=== PATIENT | female | born 1950 | race Caucasian/White ===

== ENCOUNTER 2019-06-08 09:30 | Outpatient (RCR) | payer MEDICARE, SELFPAY ==
[2019-03-23 14:16] VITALS: BMI 41.8
[2019-06-08 08:39] VITALS: BMI 41.8
== END 2019-06-21 23:59 | disposition home or self-care (01) ==
LOC: ANHDMC 09:30
PROVIDERS: PCP Internal Medicine; Visit Provider Internal Medicine
DX: E11.22 Type 2 diabetes mellitus with diabetic chronic kidney disease (principal); N18.3 Chronic kidney disease, stage 3 (moderate); Z71.3 Dietary counseling and surveillance
CPT/HCPCS: 97803

== ENCOUNTER 2019-07-10 22:35 | Emergency (ER) | payer MEDICARE, SELFPAY ==
[2019-07-10 22:39] VITALS: BP 173/71; PULSE 109; RESP 20; TEMP 37.2; O2SAT 100
--- NOTE | 2019-07-10 22:39 | ED.EAR ---
HPI - Ear Problem General Chief complaint: Ear Stated complaint: R EAR PAIN Time Seen by Provider: 07/10/19 22:38 Source: patient and RN notes reviewed Mode of arrival: ambulatory Limitations: no limitations History of Present Illness HPI Narrative: A 68 y/o female presents to the ED with constant rt ear pain beginning this morning. She states that she has seasonal allergies with cause recurrent ear infections and believes that she has one now. She reports associated decreased ability to hear out of her rt ear. She denies any fevers, chills, sore throat, cough, nasal congestion, or any other medical complaints at this time. Complaint: ear pain Location: right ear Duration: constant Context: Reports other (recurrent ear infections) Associated symptoms ear: decreased hearing Related Data Allergies Allergy/AdvReac Type Severity Reaction Status Date / Time atorvastatin Allergy Mild swelling Verified 01/24/19 05:01 codeine Allergy Unknown Unknown Verified 07/10/19 22:59 Luteinizing Hormone Analogues Allergy Unknown Verified 07/10/19 22:59 Opioids - Morphine Analogues AdvReac Vomiting Verified 07/10/19 22:59 Review of Systems Review of Systems: All systems reviewed & are unremarkable except as noted in HPI and below Constitutional: Constitutional: Denies chills and Denies fever(s) ENT: Denies nasal congestion, Denies sore throat and Reports other (rt ear pain and decreased ability to hear out of rt ear) PMFSH Past Medical History Medical History Arthritis DM II (diabetes mellitus, type II), controlled H/O: HTN (hypertension) Surgical History Surgical History Surgical history unknown Family History Family History Other Family history of Alzheimer's disease Family history of arthritis Social History Social History Smoking status: Never smoker Alcohol intake: current Spiritual care concerns: No Exam Const: General: healthy appearing and no acute distress Nutritional Appearance: well nourished HENMT: Head: other (lymphadenopathy) Ears: unable to visualize TM (Erythema, induration, and swelling of the external rt ear canal) on the right Mouth: Yes lip normal and Yes moist mucous membranes Eyes: Conjunctivae: conjunctivae normal Pupils: Equal, round and reactive pupils present Resp: Effort & Inspection: normal respiratory effort Auscultation: clear to auscultation bilaterally Cardio: Rate: regular rate Rhythm: regular rhythm Heart sounds: no murmurs GI: GI Palp: No abdominal tenderness and Yes Soft to palpation Auscultation: normal bowel sounds Back/Spine/Pelvis: Other: Full ROM. Skin: General skin exam: normal color, dry skin and other (warm) Neuro: General: patient oriented x3 (alert) Speech: normal speech Extrem: General: full ROM Psych: Mental Status: mental status grossly normal Affect: normal affect Course Vital Signs Vital signs: Vital Signs Temperature 37.2 C 07/10/19 22:39 Pulse Rate 109 H 07/10/19 22:39 Respiratory Rate 07/10/19 22:39 Blood Pressure 173/71 H 07/10/19 22:39 Pulse Oximetry 100 07/10/19 22:39 Temperature 37.2 C 07/10/19 22:39 Pulse Rate 109 H 07/10/19 22:39 Respiratory Rate 07/10/19 22:39 Blood Pressure 173/71 H 07/10/19 22:39 Pulse Oximetry 100 07/10/19 22:39 Medical Decision Making MDM Narrative Medical decision making narrative: She has severe otitis externa and due to swelling I was not able to visualize TM. Will treat with topical and oral antibiotics. Medical Records Medical records reviewed: Yes I reviewed the patient's medical records. Vital Signs Vital Signs: Vital Signs Temperature 37.2 C 07/10/19 22:39 Pulse Rate 109 H 07/10/19 22:39 Respiratory Rate 07/10/19 22:39 Blood Pressure 173/71 H 07/10/19 22:39 Pulse
[2019-07-10] MEDS: CIPROFLOXACIN HC OTIC 10 ML 3 DROP RIGHT EAR (22:57)
[2019-07-10] MEDS: AMOXICILLIN/CLAVULANATE K 875-125 MG TAB 1 TABLET PO (22:57)
== END 2019-07-10 23:15 | disposition home or self-care (01) ==
PROVIDERS: Emergency Provider Emergency Medicine; PCP Internal Medicine
DX: H60.311 Diffuse otitis externa, right ear (principal); E11.9 Type 2 diabetes mellitus without complications; I10 Essential (primary) hypertension; M19.90 Unspecified osteoarthritis, unspecified site
CPT/HCPCS: 99283; A9270

== ENCOUNTER 2019-10-08 08:00 | Outpatient (RCR) | payer MEDICARE, SELFPAY ==
[2019-07-29 08:33] VITALS: BP_SYST 90
--- NOTE | 2019-07-29 11:42 | PTOPEVAL ---
Thank you for referring Spring Ladd to [facility]. Please review, sign, date and return this plan of care DAYANNA. Pt referred to therapy to address impairments related to right shoulder pain. She demonstrates decreased shoulder range and strength, decreased UE function and increased pain. She requires additional skilled therapy 2x/wk x 6 wk to address therapy goals. I agree with and certify that the following plan of care is medically necessary. Referring Physician Date Attending Provider: Andrea Klein, Referring Provider: *PT Outpatient Evaluation Start: 07/29/19 08:35 Freq: Status: Active Protocol: Document 07/29/19 08:33 [facility] (Rec: 07/29/19 09:00 [facility] [id number]) Therapy Assessment Status Assessment Status Evaluation Outpatient Past Medical History Past Medical History Source of Past Medical History Patient,Recalled from Previous Visit, Confirmed with Patient /Family Neurological History Hx Neurological Disorders No Significant History Cardiovascular History Hx Hypertension Yes Musculoskeletal History Hx Arthritis Yes: right knee, injections Endocrine History Hx Diabetes Yes: prediabetic Other History Hx Cancer Yes: malignant neoplasm of breast Evaluation Information Problem Diagnosis right shoulder pain Onset 04/08 Cause fall Subjective Information Pt fell backwards hitting Query Text:As Reported By Patient/ elbows on the floor in Dec Family 2018. She tried heat/ice without relief. She also tried TENS with min relief of pain. 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 Denies pain waking her at night, but is unable to sleep on right side and does have increased pain at night. She is the primary caregiver of her . She performs 100% assist for dressing, transfers in/out of shower, assist if he falls. 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
--- NOTE | 2019-08-23 12:24 | PTOPEVAL ---
Thank you for referring Spring Ladd to [facility]. Please review, sign, date and return this plan of care DAYANNA. Pt has received 8 therapy visits to address right shoulder impairments following a fall. She demonstrates progress with pain level, performance with daily activities, improved strength and range. She would benefit from additional PT 2x/wk x 3-4 wk to achieve therapy goals. I agree with and certify that the following plan of care is medically necessary. Referring Physician Date Attending Provider: Andrea Klein, Referring Provider: PT re-assessment update *PT Outpatient Evaluation Start: 07/29/19 08:35 Freq: Status: Active Protocol: Document 08/23/19 09:16 CAP (Rec: 08/23/19 09:42 [facility] [id number]) Therapy Assessment Status Assessment Status Assessment Status Re-evaluation Outpatient Past Medical History Past Medical History Source of Past Medical History Patient,Recalled from Previous Visit, Confirmed with Patient /Family Neurological History Hx Neurological Disorders No Significant History Cardiovascular History Hx Hypertension Yes Musculoskeletal History Hx Arthritis Yes: right knee, injections Endocrine History Hx Diabetes Yes: prediabetic Other History Hx Cancer Yes: malignant neoplasm of breast Evaluation Information Problem Diagnosis right shoulder pain Onset 04/08 Cause fall Additional Evaluation Detail Pt fell backwards hitting elbows on the floor in Mar 2019. She tried heat/ice without relief. She also tried TENS with min relief of pain. Subjective Information She cont to use the TENS unit Query Text:As Reported By Patient/ at home for pain. She cont to Family have limitations with reaching behind and overhead to high shelves. She reports difficulty with ADL's that require reaching behind kate. Denies problems with carrying light objects. She was able to lift her 1 year old grandchild of ~20#. Denies pain waking her at night, but is unable to sleep on right side and does have increased pain at night.She is able to perform caregiver task for her as long
--- NOTE | 2019-09-17 16:13 | PTOPEVAL ---
Thank you for referring Spring Ladd to [facility]. Please review, sign, date and return this plan of care DAYANNA. Pt has been seen for 14 therapy visits to address impairments related to right shoulder. She is progressing with her shoulder strength slowly, improved shoulder range and improved pain and function. She continues to demonstrate significant soft tissue restriction of GH joint region. Cont PT 2x/wk x 3 wk to address remaining goals. I agree with and certify that the following plan of care is medically necessary. Referring Physician Date Attending Provider: Andrea Klein, Physical therapy re-evaluation *PT Outpatient Evaluation Start: 07/29/19 08:35 Freq: Status: Active Protocol: Document 09/17/19 08:05 ADRIANE (Rec: 09/17/19 08:28 [facility] [id number]) Therapy Assessment Status Assessment Status Assessment Status Re-evaluation Outpatient Past Medical History Past Medical History Source of Past Medical History Patient,Recalled from Previous Visit, Confirmed with Patient /Family Neurological History Hx Neurological Disorders No Significant History Cardiovascular History Hx Hypertension Yes Musculoskeletal History Hx Arthritis Yes: right knee, injections Endocrine History Hx Diabetes Yes: prediabetic Other History Hx Cancer Yes: malignant neoplasm of breast Evaluation Information Problem Diagnosis right shoulder pain Onset 04/08 Cause fall Additional Evaluation Detail Pt fell backwards hitting elbows on the floor in Mar 2019. She tried heat/ice without relief. She also tried TENS with min relief of pain. Subjective Information Reports she is able to perform Query Text:As Reported By Patient/ more activities with her Family shoulder with less pain. She is able to reach overhead better with daily activities. She cont to have limitations with reaching behind her back. She is able to lift and carry object without difficulty. Denies pain at night when sleeping. She is not able to sleep on her right side, but is able to sleep on her stomach, but becomes uncomfortable after short time . She continues to use the TENS
--- NOTE | 2019-09-20 08:33 | PCPTNOTE ---
Patient did not show up for scheduled appointment this date. Called Pt regarding no show. She forgot about her appointment this morning. Reminded her about the appt on Fri.
--- NOTE | 2019-10-08 08:54 | PTOPEVAL ---
Thank you for referring Spring Ladd to [facility]. Please review, sign, date and return this plan of care DAYANNAZack Londono has received 19 therapy visits to address impairments related to her right shoulder. She demonstrates normal osiel UE strength and range without increased pain for daily activities. She is indep with a HEP and demonstrates improved awareness of posture and shoulder position with activities. She has achieved her therapy goals. DC skilled PT at this time. I agree with and certify that the following plan of care is medically necessary. Referring Physician Date Attending Provider: Andrea Klein, PT re-evaluation/discharge note *PT Outpatient Evaluation Start: 07/29/19 08:35 Freq: Status: Active Protocol: Document 10/08/19 08:00 [facility] (Rec: 10/08/19 08:20 [facility] [id number]) Therapy Assessment Status Assessment Status Assessment Status Re-evaluation Evaluation Information Problem Diagnosis right shoulder pain Onset 04/08 Cause fall Additional Evaluation Detail Pt fell backwards hitting elbows on the floor in Mar 2019. She tried heat/ice without relief. She also tried TENS with min relief of pain. Subjective Information She reports no difficulty with Query Text:As Reported By Patient/ reaching overhead. She cont Family to have some difficulty with reaching behind her back for ADL task. She is able to reach into cabinets without limitations. She is able to lift and carry object without difficulty. 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 Denies pain at night when sleeping. She is not longer using the TENS unit at home. Pain Assessment Timing of Pain Assessment Timing of Pain Assessment Re-assessment Pain Scale Pain Scale Used Numeric (1 - 10) Self Report Pain Assessment Right Shoulder(s) Reported Pain Level 0 Pain Frequency Intermittent Lowest Pain Intensity 0 Greatest Pain Intensity 3 Pain Score Pain Score 0: Self Report Upper Extremity Range of Motion Scapular/ Shoulder Range of Motion Right Shoulder Flexion - Active 165 Shoulder Extension - Active 45 Shoulder Abduction - Active 170 Shoulder Medial Rotation - Active 85 Shoulder Medial Rotation - Active T9 Query Text:Reach Behind the Back Shoulder Lateral Rotation - Active 90 Shoulder
== END 2019-10-08 12:23 | disposition home or self-care (01) ==
LOC: ANHPT 08:00
PROVIDERS: PCP Internal Medicine; Visit Provider Internal Medicine
DX: M25.511 Pain in right shoulder (principal)
CPT/HCPCS: 97014; 97110; 97112; 97140; 97162; G0283

== ENCOUNTER 2021-02-26 10:07 | Outpatient (CLI) | payer MEDICARE, SELFPAY ==
--- NOTE | ~2021-02-26 | US_ITS ---
US venous doppler [facility] DATE: 02/26/2021 10:52 INDICATION: Bilateral lower extremity edema TECHNIQUE: Real-time and color flow imaging and Doppler analysis of the veins of the lower extremitie s COMPARISON: None FINDINGS: The greater saphenous veins are patent. There is spontaneous and phasic flow and normal aug mentation and color flow signal and normal compression of the deep veins of the lower extremities. IMPRESSION: No evidence of deep venous thrombosis of the lower extremities Reviewed, dictated and finalized at [facility]. Reviewed, dictated and finalized at location [facility]. RONMENTAL FIELD TEAM MEMBER
--- NOTE | ~2021-02-26 | XR_ITS ---
XR knee RT 2V, XR knee LT 2V 02/26/2021 10:44 Indication: Acute knee pain Procedure: 2 views of each knee Comparison: No prior studies for comparison. Findings: There is mild bilateral tricompartment osteoarthritis of the knees. No fracture, subluxatio n or dislocation. No significant joint effusion. Impression: 1: Mild bilateral tricompartment osteoarthritis of the knees. Reviewed, dictated and finalized at location [facility]. NICS SYSTEMS REPAIRER Impression: 1: Mild bilateral tricompartment osteoarthritis of the knees. Impression: 1: Mild bilateral tricompartment osteoarthritis of the knees.
== END 2021-02-26 10:08 | disposition home or self-care (01) ==
LOC: ANHIMG 10:16
PROVIDERS: PCP Internal Medicine; Visit Provider Internal Medicine Medical Oncology
DX: C50.911 Malignant neoplasm of unspecified site of right female breast (principal); R60.0 Localized edema; M17.0 Bilateral primary osteoarthritis of knee
CPT/HCPCS: 73560; 93970

== ENCOUNTER 2021-10-04 08:47 | Emergency (ER) | payer MEDICARE, SELFPAY ==
[2021-10-04] VITALS (16 sets, daily range): BP systolic 146–188; BP diastolic 63–80; PULSE 71–81; RESP 16–18; TEMP 36.6; O2SAT 93–98
--- NOTE | 2021-10-04 09:20 | PC.NURSE ---
EDP at bedside to assess pt.
--- NOTE | 2021-10-04 09:23 | ED.NAVMDI ---
HPI - Nausea/Vomiting/Diarrhea General Chief complaint: Nausea/Vomiting/Diarrhea Stated complaint: DIARRHEA Time Seen by Provider: 10/04/21 08:58 History of Present Illness HPI Narrative: 70-year-old female presents to the emergency room today for complaints of diarrhea. She has had the diarrhea for the last few of days. She reports that it got a lot worse this morning. She is having liquid stools about every 30 minutes. She denies having any abdominal cramping. She did have a little bit of pain across the lower abdomen this morning which resolved after taking Pepto-Bismol and her inib-fpr-upvpyoz arthritis medication. She has not had any fever or chills. She denies any nausea or vomiting. She denies any urinary symptoms. No dysuria or hematuria. She thinks that she may be having a side effect of her diabetic medication. She was started on metformin about 2 months ago. She has had this problem with metformin when she has been on it in the past. Related Data Home Medications Medication Instructions Recorded Confirmed ezetimibe 10 mg tablet 10 mg PO DAILY 10/14/19 10/14/19 lisinopril 20 1 tablet PO DAILY 10/14/19 10/14/19 mg-hydrochlorothiazide 25 mg tablet aspirin 81 mg tablet,delayed 81 mg PO DAILY 04/05/20 release (Adult Aspirin Regimen) metformin 500 mg tablet 500 mg PO BID 09/13/21 Allergies Allergy/AdvReac Type Severity Reaction Status Date / Time atorvastatin Allergy Mild swelling Verified 10/04/21 09:05 codeine Allergy Unknown Unknown Verified 10/04/21 09:05 Luteinizing Hormone Analogues Allergy Unknown Verified 10/04/21 09:05 Opioids - Morphine Analogues AdvReac Vomiting Verified 10/04/21 09:05 Review of Systems Review of Systems: CONSTITUTIONAL: Denies fever, chills, or sweats. EYES: Denies visual changes, redness, or discharge. ENT: Denies rhinorrhea, congestion, sore throat, or otalgia. CARDIOVASCULAR: Denies chest pain, palpitations, or edema. RESPIRATORY: Denies cough or dyspnea. GASTROINTESTINAL: As per HPI GENITOURINARY: Denies dysuria or hematuria. SKIN: Denies rash or itching. MUSCULOSKELETAL: Denies back pain, joint pain, or myalgia. NEUROLOGIC: Denies headache, numbness, dizziness, or weakness. PSYCHIATRIC: Denies anxiety or depression. PMFSH Past Medical History Medical History Arthritis DM II (diabetes mellitus, type II), controlled H/O: HTN (hypertension) Surgical History Surgical History Status post left breast lumpectomy Surgical history unknown Family History Family History Other Family history of Alzheimer's disease Family history of arthritis Social History Social History Smoking status: Unknown if ever smoked Alcohol intake: current Spiritual care concerns: No Exam Narrative: GENERAL: Well-appearing, well-nourished, and in no acute distress. HEAD: Normocephalic, atraumatic. EYES: PERRLA and EOMI. NECK: Supple. No adenopathy or masses. No carotid bruits or JVD CHEST: Clear to auscultation. No respiratory distress. No wheezes rales or rhonchi HEART: Regular rate and rhythm. No murmur heard. Normal peripheral pulses. ABDOMEN: Soft, nontender, nondistended, normal active bowel sounds. EXTREMITIES: Normal range of motion. No edema. SKIN: Warm, dry, no rash. NEURO: No focal deficits. Alert and oriented x3. PSYCH: Normal mood and affect. Course Vital Signs Vital signs: Vital Signs Pulse Oximetry 96 10/04/21 08:58 Temperature 36.6 C 10/04/21 08:59 Pulse Rate 81 10/04/21 08:59 Respiratory Rate 18 10/04/21 08:59 Blood Pressure 188/66 H 10/04/21 10:17 Pulse Oximetry 96 10/04/21 10:18 Oxygen Delivery Room Air 10/04/21 08:59 MDM - Nausea/Vomiting/Diarrhea Differential Diagnosis Differ
[2021-10-04 09:26] LABS: Basophils Percent Auto 0.5 % (0.2-1.2); Eosinophils Percent Auto 0.2 % (0-4.4); Hematocrit 37.4 % (37.0-47.0); Hemoglobin 12.1 g/dL (12.0-15.0); Immature Granulocyte Absolute 0.01 K/mm3 (0.00-0.031); Immature Granulocyte Percent A 0.2 % (0-0.5); Lymphocytes Absolute Auto 0.87 K/mm3 (0.9-3.2); Lymphocytes Percent Auto 20.6 % (18.3-44.2); Mean Corpuscular HGB Conc 32.4 g/dl (32-36); Mean Corpuscular Hemoglobin 31.3 pg (26-34); Mean Corpuscular Volume 96.6 fl (80-100); Mean Platelet Volume 9.2 fl (7.4-10.4); Monocytes Absolute Auto 0.5 K/mm3 (0.1-0.6); Monocytes Percent Auto 11.6 % (2.6-8.5); Neutrophils Absolute Auto 2.8 K/mm3 (1.3-6.7); Neutrophils Percent Auto 66.9 % (45.5-73.1); Platelet Count Result 171 k/mm3 (150-375); Red Blood Count 3.87 M/mm3 (4.2-5.4); Red Cell Distribution Width 13.2 % (11.5-14.5); White Blood Count 4.2 K/mm3 (4.5-10.0)
[2021-10-04] MEDS: SODIUM CHLORIDE 0.9% IV 1,000 ML 999 ML IV CONT (09:46)
[2021-10-04 09:59] LABS: Alanine Aminotransferase 36 U/L (6-35); Albumin Level 4.8 g/dL (3.5-5.1); Alkaline Phosphatase 91 U/L (38-126); Anion Gap 9 mmol/L (8-16); Aspartate Amino Transferase 27 U/L (14-36); Bilirubin,Total 0.4 mg/dL (0.2-1.3); Blood Urea Nitrogen 26 mg/dL (7-17); Calcium 9.6 mg/dL (8.4-10.2); Carbon Dioxide 24 mmol/L (22-30); Chloride 106 mmol/L (98-107); Estimated CRCL calculation 49 ml/min; Estimated Glomerular Filt Rate 49; Glucose 130 mg/dL (65-110); Lipase 134 U/L (23-300); Potassium 4.2 mmol/L (3.4-5.0); Sodium 139 mmol/L (137-145)
[2021-10-04 10:57] LABS: Appearance Urine Clear (Clear); Bilirubin Urine Negative (Negative); Blood Urine Negative (Negative); Color Urine Yellow (Yellow); Glucose Urine UA Negative (Negative); Ketones Urine Negative (Negative); Leukocyte Esterase Ur Trace LEU/UL (Negative); Nitrate Urine Negative (Negative); Protein Urine Negative (Negative); Specific Grav Ur 1.015 (1.001-1.035); Urobilinogen Urine 0.2 mg/dL (<2.0)
[2021-10-04 11:00] LABS: Add Urine Microscopic? YES
[2021-10-04 11:03] LABS: RBC Urine 0-2 /hpf (0-2); Squamous Epithelial Cell Urine Rare /hpf (Few)
== END 2021-10-04 11:50 | disposition home or self-care (01) ==
PROVIDERS: Emergency Provider Nurse Practitioner Family; PCP Internal Medicine
DX: R19.7 Diarrhea, unspecified (principal); E11.9 Type 2 diabetes mellitus without complications; I10 Essential (primary) hypertension; M19.90 Unspecified osteoarthritis, unspecified site; Z79.82 Long term (current) use of aspirin; Z79.84 Long term (current) use of oral hypoglycemic drugs
CPT/HCPCS: 36415; 80053; 81001; 83690; 85025; 96360; 99283; J7030

== ENCOUNTER 2022-04-10 09:45 | Outpatient (RCR) | payer MEDICARE, SELFPAY ==
--- NOTE | 2022-01-23 10:11 | PTOPEVAL1 ---
Assessment and note entered by Ria العراقي, PT Reported Pain Level Pain Score 6: Self Report L knee Assessment PT Clinical Summary Pt presents for evaluation and administration of HEP prior to total knee replacement scheduled . Pt currently demo's gait abnormality related to pain, decreased muscular endurance evidenced by difficulty maintaining LAQ during testing, decreased ROM, and increased pain with activities. Pt was educated on and performed her initial HEP, was provided hand out, and educated on prognosis/process of healing after total knee replacement. Pt is scheduled to return for evaluation 02/06/22 to begin her post-op therapy. Plan of Care and goal setting will be deferred until that time. Plan of Care Interventions Hot Pack/Cold Pack,Therapeutic Exercise PT Services Indicated Yes Treatment Frequency and 1 visit to prepare for surgical procedure Duration These treatments will address the objective and functional deficits as defined above. The patient will be advanced safely and appropriately in order for the patient to progress towards his/her prior level of function. Additional exercises will be introduced and as well as a comprehensive home exercise program upon discharge, if needed, ?to ensure carryover of functional gains achieved in the clinic. This treatment plan has been reviewed and agreement upon by the patient.
--- NOTE | 2022-02-06 17:04 | PTOPEVAL1 ---
Assessment and note entered by Ria العراقي, PT Evaluation Information Assessment Status Re-evaluation Diagnosis L TKR Onset 01/31/2022 Subjective Information has been using CPM and circulating ice machine. Has been unable to perform multiple exercises provided prior to sx as well as exercises from hospital therapist. Pt has only been able to perform ankle pumps, quad sets, and glute sets. Has been unable to bend her knee in bed, perform short arc quad or propped extension secondary to pain. Reported Pain Level Pain Score 6: Self Report Additional Pain Score Comments Pt reports having taken her pain medication appropriately this am, also has used her circulating ice machine this am prior to therapy. Assessment PT Clinical Summary Pt presents s/p LLE TKR 01/31/2022. She reports use of CPM in home, circulating ice machine, and attempted use of TENS unsuccessfully at this time. Reports taking her pain med as directed helps her pain stay around 5-6/10. However pt reports has been unable to perform many of her exercises due to pain including heel slides and extension. Today pt presents with hyperflexion of left knee throughout gait cycle, severely reduced extension AROM and PROM due to pain, moderate/severely reduced knee flexion Active ROM and Passive ROM secondary to pain, poor muscle contraction secondary to pain, and poor bed/mat mobility due to pain. Pt reports appropriate use of CPM, circulating ice machine, and pain medication. Knee warmth, bruising, and pliability all WNL for this phase of surgery. Pt will benefit from physical therapy to address deficits, reduce pain, and improve function. Plan of Care Interventions Electrical Stimulation,Gait Training,Manual Therapy,Neuro Re-education,Therapeutic Activities, Therapeutic Exercise PT Services Indicated Yes These treatments will address the objective and functional deficits as defined above. The patient will be advanced safely and appropriately in order for the patient to progress towards his/her prior level of function. Additional exercises will be introduced and as well as a comprehensive home exercise program upon discharge, if needed, ?to ensure carryover of functional gains achieved in the clinic. This treatment plan has been reviewed and agreement upon by the patient.
--- NOTE | 2022-03-15 13:26 | PTOPPROG ---
Assessment and note entered by Anna Mancuso, PT Evaluation Information Assessment Status Progress Diagnosis L TKR Onset 01/31/2022 Subjective Information Spring reports: is moving the knee more, but have tweeked her back and that has been bothering her; using the walker all of the time; have been trying to walk more--50 steps every few hours; have not been out in the community--in home and to therapy only; daughter is doing laundry and meals, she only heats up food; has returned to driving; want to return to aquatic exercises; goes to the dr next week; PAIN: pain range of 0-4/10 in L knee: real tight and pain medial knee; increase with bending knee; decreased with elevating, TENS, ice, tylenol PRN; Assessment PT Clinical Summary Spring has received a total of 13 PT sessions. Compared to the last reeval on 02-06-22: continues to use the wheeled walker with decreased hip and knee flexion and circumduction gait pattern; knee extension is (-15'), and flexion active 90' and assist with stretch to 95'; 2 minute walking test distance is 270' with the wheeled walker; she continues to have edema over L knee; She reports her daughter is continuing to help her with meals and laundry, and she has not been going out into the community, only leaving home for PT sessions. She has been walking 50 steps every hour. Reinforced with her today that she needs to do more than 10 reps with her home exercises and increase her overall activity level. Continue PT treatment. Plan of Care Interventions Electrical Stimulation,Hot Pack/Cold Pack, Intermittent Compression,Manual Therapy,Neuro Re- education,Patient/Caregiver Education,Therapeutic Activities,Therapeutic Exercise PT Services Indicated Yes Treatment Frequency and 2x/wk for 4 weeks Duration These treatments will address the objective and functional deficits as defined above. The patient will be advanced safely and appropriately in order for the patient to progress towards his/her prior level of function. Additional exercises will be introduced and as well as a comprehensive home exercise program upon discharge, if needed, ?to ensure carryover of functional gains achieved in the clinic. This treatment plan has been reviewed and agreement upon by the patient.
--- NOTE | 2022-04-10 11:00 | PCPTNOTE ---
pt canceled her reeval appt on 04-12 due to severe weather alert; She was not able to be rescheduled for the reeval appt until 04-29-22; PLAN: continue PT treatment, with same plan of care extended to 04-29-22 reevaluation.
--- NOTE | 2022-04-16 13:19 | PCPTNOTE ---
This treatment is being continued on visit number [id number]. Please see documentation on both accounts to view progress. Completed interventions, outcomes, and problems have been marked as Inactive to facilitate the copying of the Care plan routine for recurring accounts.
== END 2022-04-16 12:59 | disposition home or self-care (01) ==
LOC: ANHPT 09:45
PROVIDERS: PCP Internal Medicine; Visit Provider Orthopaedic Surgery
DX: Z47.1 Aftercare following joint replacement surgery (principal); Z96.652 Presence of left artificial knee joint
CPT/HCPCS: 97014; 97016; 97110; 97112; 97116; 97140; 97161; 97162; 97530; G0283

== ENCOUNTER 2022-05-27 10:00 | Outpatient (RCR) | payer MEDICARE, SELFPAY ==
--- NOTE | 2022-04-16 13:23 | PCPTNOTE ---
This treatment is being continued from previous visit number [id number]. Please see documentation on both accounts to view progress. Completed interventions, outcomes, and problems have been marked as Inactive to facilitate the copying of the Care plan routine for recurring accounts.
--- NOTE | 2022-04-29 13:15 | PTOPPROG ---
Assessment and note entered by Anna Mancuso, PT Evaluation Information Assessment Status Progress Diagnosis L TKR Onset 01/31/2022 Subjective Information Spring reports: knee is better, need to continue with therapy; saw PA today-- pleased with her progress, feel like she is on track with her knee; at home, do not use the cane, use the cane when go out; family is helping with home chores and shopping; Pain: 0-7/10: medial and lateral L knee; increase pain with exercises; can be up/ walking 30 minutes; decrease pain: ice, TENS, sit/rest, rub knee; Assessment PT Clinical Summary Mrs. Ladd has received 23 PT sessions s/p L TKR. She continues to have assist from her family for home chores and shopping. Compared to the last reevaluation: pain at the low rating is the same, at 0/10 and the worst rating was 4 and is not 7/10; reported walking tolerance is 30 min; continues to use the cane and has a limp on L LE; strength has increased with mat exercises, but single leg standing is 1 sec less; difficulty on stairs due to increased pain in L knee and decreased flexion ROM; 2 minute walking test distance increased to 400'; Continues to have swelling over her knee with the 3 circumferential measurements, 2 of the 3 have increased. ROM of knee: active (-5') to 90' and passive stretch 95'; Reinforced her doing her knee exercises, increase reps to 20-has been doing 10-12 reps and bend her knee more than 2x/day. The goals were partially achieved. Continue PT. Plan of Care Interventions Gait Training,Hot Pack/Cold Pack,Intermittent Compression,Manual Therapy,Neuro Re-education, Patient/Caregiver Education,Therapeutic Activities, Therapeutic Exercise PT Services Indicated Yes Treatment Frequency and 2x/wk for 4 weeks Duration These treatments will address the objective and functional deficits as defined above. The patient will be advanced safely and appropriately in order for the patient to progress towards his/her prior level of function. Additional exercises will be introduced and as
--- NOTE | 2022-05-27 10:43 | PTOPDC ---
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 Compared to the last reevaluation: pain has decreased from 7 to 4/10 at worst; increased strength of L hip and knee with mat exercises; single leg standing has improved from 1 to 4 seconds; 2 minute walking test distance has increase 85'; she continues to walk with decreased L hip and knee flexion, with circumduction of hip; she is able to perform steps with out a hand railing, using single step pattern and cautious, slow pace; edema has decreased with 2 of the 3 patellar measurements. She continues to use a motorized scooter with shopping in the larger stores. With her home exercise program, she reports performing 10 reps, after repeated instructions to increase reps to 20 reps. Her L knee active ROM in sitting is (-5') to 100'. She is independent with her home exercises. And was educated to continue to increase her walking and activity level. The goals were partially achieved. Discharge PT services. Plan of Care PT Services Indicated No
== END 2022-05-27 14:55 | disposition home or self-care (01) ==
LOC: ANHPT 10:00
PROVIDERS: PCP Internal Medicine; Visit Provider Orthopaedic Surgery
DX: Z47.1 Aftercare following joint replacement surgery (principal); Z96.652 Presence of left artificial knee joint
CPT/HCPCS: 97110; 97116; 97140; 97530

== ENCOUNTER 2022-07-23 08:10 | Emergency (ER) | payer MEDICARE, SELFPAY ==
--- NOTE | ~2022-07-23 | XR_ITS ---
EXAMINATION: XR chest 2V DATE: 07/23/2022 09:00 INDICATION: Chest pain with deep inspiration. TECHNIQUE: Frontal and lateral views of the chest were obtained. COMPARISON: None. FINDINGS: The chest demonstrates clear lungs without pneumonia, pleural effusion, or pneumothorax. Th e heart size is normal. There are surgical clips in right breast. IMPRESSION: 1. No acute cardiopulmonary disease. Reviewed, dictated and finalized at location A.
--- NOTE | ~2022-07-23 | CT_ITS ---
EXAMINATION: CTA chest PE protocol DATE: 07/23/2022 13:58 INDICATION: Intermittent chest pain. TECHNIQUE: Computed tomography angiography (CTA) of the chest was performed with 100 mL Omnipaque-350 intravenous contrast timed to evaluate the pulmonary arteries. Coronal maximum intensity projection 3D-reconstructions were created by the technologist. Automated exposure control and iterative reconst ruction technique were employed. The dose-length product was 606.04 mGy-cm. COMPARISON: None. FINDINGS: There is mild atelectasis bilaterally. There is mild scarring in paraspinal right lower lob e. No pleural effusion. The heart size is normal. No pericardial effusion. There is no pulmonary embo bel. Partially visualized are gallstones in the gallbladder. There is severe cervical spondylosis and moderate thoracic spondylosis. IMPRESSION: 1. No pulmonary embolus. Reviewed, dictated and finalized at location A. IMPRESSION: 1. No pulmonary embolus.
--- NOTE | 2022-07-23 08:12 | ECG_ITS ---
Measurements Intervals [place] Rate: 81 P: 58 FL: 139 QRS: 16 QRSD: 89 T: 48 QT: 351 QTc: 409 Interpretive Statements SINUS RHYTHM LOW QRS VOLTAGE IN PRECORDIAL LEADS [QRS DEFLECTION < 1.0 mV IN CHEST LEADS] MINIMAL ST DEPRESSION [0.025+ mV ST DEPRESSION] NO PREVIOUS ECG AVAILABLE FOR COMPARISON Electronically Signed On 07-23-2022 16:04:17 CDT by Mick Carr M.D.
[2022-07-23 08:19] VITALS: BP 182/72; PULSE 90; RESP 16; TEMP 36.7; O2SAT 100
[2022-07-23 08:42] LABS: Basophils Percent Auto 0.8 % (0.2-1.2); Eosinophils Absolute Auto 0.1 K/mm3 (0-0.3); Eosinophils Percent Auto 1.3 % (0-4.4); Hematocrit 37.1 % (37.0-47.0); Immature Granulocyte Absolute 0.01 K/mm3 (0.00-0.031); Immature Granulocyte Percent A 0.3 % (0-0.5); Lymphocytes Absolute Auto 0.98 K/mm3 (0.9-3.2); Lymphocytes Percent Auto 24.5 % (18.3-44.2); Mean Corpuscular HGB Conc 32.3 g/dl (32-36); Mean Corpuscular Hemoglobin 30.6 pg (26-34); Mean Corpuscular Volume 94.6 fl (80-100); Mean Platelet Volume 8.9 fl (7.4-10.4); Monocytes Absolute Auto 0.3 K/mm3 (0.1-0.6); Monocytes Percent Auto 6.8 % (2.6-8.5); Neutrophils Absolute Auto 2.7 K/mm3 (1.3-6.7); Neutrophils Percent Auto 66.3 % (45.5-73.1); Platelet Count Result 231 k/mm3 (150-375); Red Blood Count 3.92 M/mm3 (4.2-5.4); Red Cell Distribution Width 13.4 % (11.5-14.5)
[2022-07-23 08:52] LABS: Prothrombin Time 12.5 Seconds (11.1-14.7)
[2022-07-23 08:53] LABS: Partial Thromboplastin Time 24.8 SECONDS (22.3-36.8)
[2022-07-23 08:54] LABS: Alanine Aminotransferase 23 U/L (6-35); Albumin Level 4.5 g/dL (3.5-5.1); Alkaline Phosphatase 100 U/L (38-126); Anion Gap 11 mmol/L (8-16); Aspartate Amino Transferase 22 U/L (14-36); Bilirubin,Total 0.5 mg/dL (0.2-1.3); Blood Urea Nitrogen 22 mg/dL (7-17); Calcium 9.3 mg/dL (8.4-10.2); Carbon Dioxide 24 mmol/L (22-30); Chloride 103 mmol/L (98-107); Estimated CRCL calculation 58 ml/min; Estimated Glomerular Filt Rate > 60; Glucose 138 mg/dL (65-110); Lipase 57 U/L (23-300); Potassium 3.9 mmol/L (3.4-5.0); Sodium 138 mmol/L (137-145)
[2022-07-23 09:06] LABS: Troponin I < 0.012 ng/mL (0.000-0.034)
[2022-07-23 11:20] VITALS: BP 154/67; PULSE 77; RESP 16; O2SAT 98
--- NOTE | 2022-07-23 11:35 | PC.NURSE ---
pt states has been told to hold her baby asa and fish oil due to lumpectomy scheduled for tomorrow. ed asa protocol held.
[2022-07-23 12:14] LABS: Troponin I < 0.012 ng/mL (0.000-0.034)
--- NOTE | 2022-07-23 13:02 | ED.CHESTPAIN ---
HPI - Chest Pain General Chief Complaint: Chest Pain Stated Complaint: chest pain Time Seen by Provider: 07/23/22 11:53 Source: patient and RN notes reviewed Mode of arrival: ambulatory Limitations: no limitations History of Present Illness HPI narrative: THis is a 71 year old female with history of DM, hyperlipidemia, hypertension, breast cancer who presents for evaluation of left chest pain. Patient reports she developed intermittent left chest pain that she describes as sharp and dull ache yesterday. She feels pain with inspiration but she denies associated shortness of breath, nausea, vomiting, cough, fever or chills. She is unsure if her pain is due to starting antihormone medication to treat her breast cancer. She started this medication 2 weeks ago and she takes every other day. She reports taking similar medication and it caused her to get lumps on her legs. She denies history of DVT or PE. She is scheduled for right breast lumpectomy tomorrow. Related Data Home Medications Medication Instructions Recorded Confirmed ezetimibe 10 mg tablet 10 mg PO DAILY 10/14/19 06/19/22 lisinopril 20 1 tablet PO DAILY 10/14/19 06/19/22 mg-hydrochlorothiazide 25 mg tablet aspirin 81 mg tablet,delayed 81 mg PO DAILY 04/05/20 06/19/22 release (Adult Aspirin Regimen) multivitamin 1 tablet PO DAILY 12/18/21 06/19/22 omega 4-vhg-cgb-fish oil 100 2 cap PO 12/18/21 06/19/22 mg-160 mg-1,000 mg capsule (Fish Oil) Allergies Allergy/AdvReac Type Severity Reaction Status Date / Time atorvastatin Allergy Mild swelling Verified 07/23/22 08:11 codeine Allergy Unknown Unknown Verified 07/23/22 08:11 Luteinizing Hormone Analogues Allergy Unknown Verified 07/23/22 08:11 metformin AdvReac Mild Diarrhea Verified 07/23/22 08:17 Opioids - Morphine Analogues AdvReac Vomiting Verified 07/23/22 08:11 Review of Systems Constitutional: Constitutional: Denies weakness Cardiovascular: Cardiovascular: Reports chest pain, Denies syncope, Denies rapid heart rate, Denies irregular heart rhythm, Denies leg edema and Denies dyspnea Respiratory: Respiratory: Denies chest congestion, Denies hemoptysis, Denies excessive phlegm production and Denies dyspnea Gastrointestinal: Gastrointestinal: Denies abdominal pain, Denies hematochezia, Denies diarrhea and Denies vomiting Genitourinary: Genitourinary: Denies hematuria and Denies dysuria Musculoskeletal: Musculoskeletal: Denies joint swelling, Denies loss of height and Denies muscle weakness Neurologic: Denies syncope, Denies focal weakness and Denies weakness PMFSH Past Medical History Medical History Arthritis Chronic kidney disease, stage 3 Chronic otitis externa of both ears H/O: HTN (hypertension) Hyperlipidemia associated with type 2 diabetes mellitus Neuralgia Type 2 diabetes mellitus Surgical History Surgical History History of shoulder surgery left shoulder, bone spur S/P lumpectomy, right breast 1st one benign 2nd one cancer, had to go back in because it was not all removed the 1st time Total knee replacement status Family History Family History Other Family history of Alzheimer's disease Family history of arthritis Social History Social History Smoking status: Never smoker Alcohol intake: current Alcohol use details: occasionally Substance use: never Spiritual care concerns: No Exam Narrative: GENERAL: Well-appearing, well-nourished, and in no acute distress. HEAD: Normocephalic, atraumatic EYES: PERRLA and EOMI, conjunctiva clear without discharge THROAT:Mucous membranes moist, Oropharynx normal without erythema, exudate, peritonsillar swelling or fluctuance NECK: Supple, without lymphadenopathy or mass RESPIRATORY: No respirator
[2022-07-23 13:03] LABS: D Dimer 2.07 ug/mL (<0.48)
[2022-07-23 14:50] VITALS: PULSE 77; RESP 16; O2SAT 98
== END 2022-07-23 14:50 | disposition home or self-care (01) ==
PROVIDERS: Emergency Provider General Practice; PCP Internal Medicine
DX: R07.9 Chest pain, unspecified (principal); E11.22 Type 2 diabetes mellitus with diabetic chronic kidney disease; I12.9 Hypertensive chronic kidney disease with stage 1 through stage 4 chronic kidney disease, or unspecified chronic kidney disease; N18.30 Chronic kidney disease, stage 3 unspecified; E11.69 Type 2 diabetes mellitus with other specified complication; E78.49 Other hyperlipidemia; M19.90 Unspecified osteoarthritis, unspecified site; Z85.3 Personal history of malignant neoplasm of breast; Z96.659 Presence of unspecified artificial knee joint; Z79.82 Long term (current) use of aspirin; Z79.84 Long term (current) use of oral hypoglycemic drugs
CPT/HCPCS: 36415; 71046; 71275; 80053; 83690; 84484; 85025; 85380; 85610; 85730; 93005; 96374; 99284; J0131; Q9967